=== PATIENT | female | born 1930 | race Caucasian/White ===

== ENCOUNTER → 2017-06-08 | Outpatient (CLI) | payer MEDICARE, OTHER ==
[~2017-06-08] MED LIST: AMLO-147 PO; ASPI-28 PO; BENA40TA41 PO; CALC1TAB80 PO; CIPR500T4 PO; ISOS5TAB23 PO; METF1000 PO; METO-407 PO; SIMV20TA2 PO
--- NOTE | 2017-06-08 10:56 | RADRPT ---
PROCEDURE: XR Abdomen. CLINICAL INDICATION: 87-year-old female with abdominal pain. TECHNIQUE: AP abdomen x-ray. COMPARISON: None. FINDINGS: There is fecal material in the ascending and portions of the transverse and descending colon. The h eart is enlarged. There is a severe levoscoliosis of the mid lumbar spine. No pleural effusion is noted. No mechanical bowel obstruction or abnormal intra-abdominal calcification is noted. IMPRESSION: 1. There is moderate fecal material in the colon. 2. Cardiomegaly. 3. 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 RPTAT:AAJJ . Physician Stewart Date Time Electronically viewed and signed by Tc Singh Physician on 06/08/2017 10:56 /
--- NOTE | 2017-06-09 08:22 | RADRPT ---
PROCEDURE: CT abdomen and pelvis without IV contrast CLINICAL INDICATION: Abdominal pain TECHNIQUE: Axial images were obtained through the abdomen and pelvis without IV contrast. Coronal and sagittal reconstructions were obtained. Automated exposure control was utilized. DLP = 688.7 m Gy-cm. CTDiol= 12.4 mGy. One or more of the following post reduction techniques were used: - Automated exposure control. - Adjustment of the mA and/or Kv according to patient's size. - Use of iterative reconstruction technique COMPARISON: April 05, 2016 FINDINGS: The visualized lower lungs are clear. Heart size is within normal limits. Aortic annular calcifica tions are seen. Coronary artery calcifications are observed The liver, gallbladder, pancreas, spleen and adrenals are unremarkable. An obstructing 10 mm stone is identified in the middle third of the left ureter. There is associate d proximal moderate to severe hydroureteronephrosis. Multiple small nonobstructing stones are identi fied in the left kidney. The largest measures up to approximately 6 mm. Multiple small, non-obstru cting stones are identified in the right kidney. The largest measures up to approximately 4 mm. No right-sided obstructive uropathy is identified. The bladder is filled with a small amount of urine. The uterus has an unremarkable appearance. Moderate to large amount of formed stool is identified throughout the colon. Multiple sigmoid colon diverticula are seen. The appendix is normal. No dilated loops of small bowel are observed. The st omach and duodenum are unremarkable. No intra-abdominal or pelvic free fluid or fluid collections are observed. No intra-abdominal or pe lvic lymphadenopathy is observed. Scattered mild to moderate calcified atherosclerosis is seen thro ughout the arterial vasculature. Severe degenerative changes are identified in the spine with scoliosis. Subcutaneous and muscular s oft tissues surrounding the abdomen and pelvis are unremarkable. IMPRESSION: Limited evaluation for intra-abdominal inflammatory processes without IV contrast. If there is clin ical concern for a intra-abdominal inflammatory process repeat exam with IV contrast is recommended. 10 mm obstructing stone in the middle third of the left ureter with associated moderate to severe le ft hydronephrosis. Multiple additional smaller nonobstructing stones in both kidneys. Moderate to large amount of formed stool throughout the colon suggesting constipation. Colonic diverticulosis. Degenerative changes in the spine with severe scoliosis. Calcified atherosclerosis in the arterial vasculature. RPTAT: AA .Christopher Alaniz MD, MD Date Time Electronically viewed and signed by .Christopher Alaniz MD, MD on 06/09/2017 08:21 .P/
== END | disposition home or self-care (01) ==
LOC: C/S 07:56
PROVIDERS: ATTEND Internal Medicine
DX: R10.9 Unspecified abdominal pain (principal)
CPT/HCPCS: 74010; 74176

== ENCOUNTER → 2018-02-24 | Outpatient (CLI) | END | disposition home or self-care (01) ==

== ENCOUNTER 2018-06-18 12:35 | Emergency (ER) | END 2018-06-18 16:22 | disposition home or self-care (01) ==